=== PATIENT | female | born 2000 | race African-American/Black ===

== ENCOUNTER 2018-04-13 20:20 | Emergency (ER) | payer MEDICAID ==
[~2018-04-13] VITALS: Ht 165.1 cm; Wt 48.5 kg
[2018-04-13 21:04] VITALS: BP 102/69
== END 2018-04-14 00:30 | disposition left against medical advice (07) ==
LOC: ER 20:20
DX: R51 Headache (principal); R11.2 Nausea with vomiting, unspecified; Z53.21 Procedure and treatment not carried out due to patient leaving prior to being seen by health care provider

== ENCOUNTER 2021-05-25 10:56 | Emergency (ER) | payer MEDICAID, OTHER ==
[~2021-05-25] VITALS: Ht 165.1 cm; Wt 99.8 kg
[2021-05-25 10:56] VITALS: BP 0/0
[2021-05-25] MEDS ORDERED: SODIUM BICARBONATE 8.4% INJ 50ML SYRINGE ONE (11:04)
[2021-05-25] MEDS ORDERED: CALCIUM CHLOR(10%) 100MG/ML 10ML SYRINGE IV ONE (16:45)
[2021-05-25] MEDS ORDERED: EPINEPHrine HCL 1 MG/10 ML SYRG IV ONE (16:46)
[2021-05-25] MEDS ORDERED: SODIUM BICARBONATE 8.4% INJ 50ML SYRINGE IV ONE (16:46)
[2021-05-25] MEDS ORDERED: MAGNESIUM SULF SDV 50% 4MEQ/ML-2 ML VIAL IV ONE (16:47)
== END 2021-05-25 15:09 ==
LOC: EDBD 10:56 → ER 10:56
DX: I46.9 Cardiac arrest, cause unspecified (principal); R06.89 Other abnormalities of breathing; F41.0 Panic disorder [episodic paroxysmal anxiety]; I49.01 Ventricular fibrillation
CPT/HCPCS: 31500; 92950; 99285; J0171; J3475